=== PATIENT | female | born 1960 | race Caucasian/White ===

== ENCOUNTER 2020-01-22 08:47 | Outpatient (CLI) | payer MEDICARE, SELFPAY ==
--- NOTE | 2020-01-22 09:07 | MR_ITS ---
WS: [id number] MRI LUMBAR SPINE NONCONTRAST TECHNIQUE: Sagittal T1, T2 and STIR imaging. Axial T1 and T2 imaging. CLINICAL INFORMATION: LOW BACK PAIN COMPARISON: None. FINDINGS: Mild lumbar curve. Mild compression superior endplate T12 with endplate Schmorl's node. Small amount of edema in the superior endplate suspicious for late subacute compression. Minimal retropulsion post erior superior cortex with no significant spinal canal narrowing. No high-grade central canal stenosi s. L1-L2: Normal. L2-L3: Normal. L3-L4: No significant disc bulging. Spinal canal foramen are patent. L4-L5: No significant disc bulging. Mild facet arthropathy. Spinal canal and foramen are patent. L5-S1: No significant disc bulging. Spinal canal and foramen are patent. Mild facet arthropathy. Visualized pelvic bony structures: Normal. Paravertebral soft tissues: Normal. MR/MR lumbar spine wo con* [id number] IMPRESSION: 1. Mild lumbar curve.No high-grade central canal stenosis. 2. Mild compression superior endplate T12 with endplate Schmorl's node with a tiny amount of edema suspicious for late subacute compression. 3. No significant spinal canal or foraminal narrowing. 4. Mild facet arthropathy L4-L5 and L5-S1. 5. No other significant findings.
--- NOTE | 2020-01-22 09:07 | XR_ITS ---
WS: [id number] Lumbar spine with flexion, extension, and neutral lateral, 01/22/2020 Clinical Data: LOW BACK PAIN Comparison: None. Findings: No compression fractures or subluxation is seen. No disc space narrowing is seen. No limitation of motion or subluxation is seen in flexion or extension.. There is calcification of the wall of the abdominal aorta but no aneurysm is seen. XR/XR lumbar spine f/e only [id number] Impression: Negative lateral lumbar spine.
== END 2020-01-22 08:48 | disposition home or self-care (01) ==
LOC: RADWPI 08:57
PROVIDERS: Family Provider Family Medicine; PCP Family Medicine; Visit Provider Nurse Practitioner
DX: M54.5 Low back pain (principal); M47.817 Spondylosis without myelopathy or radiculopathy, lumbosacral region
CPT/HCPCS: 72120; 72148